=== PATIENT | male | born 1955 | race Caucasian/White ===

== ENCOUNTER 2019-11-25 08:51 | Outpatient (REF) | payer BC, SELFPAY | END 2019-11-25 08:52 | disposition home or self-care (01) | LOC: HO.BBR 08:51 | PROVIDERS: Visit Provider Internal Medicine | DX: E83.110 Hereditary hemochromatosis (principal) | CPT/HCPCS: 99195 ==

== ENCOUNTER 2020-01-27 08:43 | Outpatient (REF) | payer BC, SELFPAY | END 2020-01-27 08:44 | disposition home or self-care (01) | LOC: HO.BBR 08:43 | PROVIDERS: Visit Provider Internal Medicine | DX: Z13.89 Encounter for screening for other disorder (principal) ==

== ENCOUNTER 2020-01-27 09:05 | Outpatient (REF) | payer SELFPAY ==
[2020-01-27 10:29] LABS: Cholesterol 190 mg/dL
== END 2020-01-27 09:06 | disposition home or self-care (01) ==
LOC: HO.LNC 09:05
PROVIDERS: Visit Provider Pathology Anatomic Pathology & Clinical Pathology
DX: Z76.89 Persons encountering health services in other specified circumstances (principal)
CPT/HCPCS: 82465

== ENCOUNTER 2020-02-24 08:44 | Outpatient (REF) | payer BC, SELFPAY | END 2020-02-24 08:45 | disposition home or self-care (01) | LOC: HO.BBR 08:44 | PROVIDERS: Visit Provider Internal Medicine | DX: Z13.89 Encounter for screening for other disorder (principal) ==

== ENCOUNTER 2020-02-24 09:37 | Outpatient (REF) | payer SELFPAY ==
[2020-02-24 10:35] LABS: SARS COV2 IgG Negative (Negative)
== END 2020-02-24 09:38 | disposition home or self-care (01) ==
LOC: HO.LNC 09:37
PROVIDERS: Visit Provider Pathology Anatomic Pathology & Clinical Pathology
DX: Z13.89 Encounter for screening for other disorder (principal)
CPT/HCPCS: 36415; 86769

== ENCOUNTER 2020-03-25 10:07 | Outpatient (REF) | payer SELFPAY | END 2020-03-25 10:08 | disposition home or self-care (01) | LOC: HO.BBR 10:07 | PROVIDERS: Visit Provider Internal Medicine | DX: Z13.89 Encounter for screening for other disorder (principal) ==

== ENCOUNTER 2020-04-24 10:46 | Outpatient (REF) | payer BC, SELFPAY | END 2020-04-24 10:47 | disposition home or self-care (01) | LOC: HO.BBR 10:46 | PROVIDERS: Visit Provider Internal Medicine | DX: Z13.89 Encounter for screening for other disorder (principal) ==

== ENCOUNTER 2020-05-22 10:41 | Outpatient (REF) | payer BC, SELFPAY | END 2020-05-22 10:42 | disposition home or self-care (01) | LOC: HO.BBR 10:41 | PROVIDERS: PCP Internal Medicine; Visit Provider Internal Medicine | DX: Z13.89 Encounter for screening for other disorder (principal) ==

== ENCOUNTER 2020-06-19 08:50 | Outpatient (REF) | payer BC, SELFPAY | END 2020-06-19 08:51 | disposition home or self-care (01) | LOC: HO.BBR 08:50 | PROVIDERS: Visit Provider Internal Medicine | DX: Z13.89 Encounter for screening for other disorder (principal) ==

== ENCOUNTER 2020-12-25 08:57 | Outpatient (REF) | payer BC, SELFPAY | END 2020-12-25 08:58 | disposition home or self-care (01) | LOC: HO.BBR 08:57 | PROVIDERS: Visit Provider Internal Medicine | DX: Z13.89 Encounter for screening for other disorder (principal) ==

== ENCOUNTER → 2021-02-25 14:45 | Outpatient (BNV) | payer BC, MEDICARE, SELFPAY | PROVIDERS: PCP Internal Medicine; Referring Provider Physician Assistant Medical; Visit Provider Internal Medicine Medical Oncology | DX: E83.119 Hemochromatosis, unspecified (principal) | CPT/HCPCS: 99203; 99213 ==

== ENCOUNTER 2021-03-09 14:49 | Outpatient (REF) | payer BC, SELFPAY | END 2021-03-09 14:50 | disposition home or self-care (01) | LOC: HO.BBR 14:49 | PROVIDERS: Visit Provider Internal Medicine Medical Oncology | DX: Z13.89 Encounter for screening for other disorder (principal) ==

== ENCOUNTER 2021-04-06 10:03 | Outpatient (REF) | payer BC, SELFPAY ==
[2021-04-06 10:26] LABS: MANUAL DIFF FLAG NO
[2021-04-06 10:29] LABS: Basophils Absolute Auto 0.1 X10*3/uL (0.0-0.2); Basophils Percent Auto 0.9 % (0-2); Eosinophils Absolute Auto 0.1 X10*3/uL (0.0-0.4); Eosinophils Percent Auto 1.2 % (0-4); Hematocrit 44.1 % (42.0-52.0); Hemoglobin 15.6 g/dl (14.0-18.0); Imm Gran Abs Auto 0.02 X10*3/uL (0.00-0.03); Imm Gran Pct Auto 0.4 % (0.0-0.4); Lymphocytes Absolute Auto 1.6 X10*3/uL (1.2-4.9); Lymphocytes Percent Auto 27.9 % (20-40); Mean Corpuscular HGB Conc 35.4 g/dl (31.0-36.0); Mean Corpuscular Hemoglobin 32.5 pg (27.0-33.0); Mean Corpuscular Volume 91.9 fL (80.0-98.0); Mean Platelet Volume 9.9 fL (9.4-12.4); Monocytes Absolute Auto 0.9 X10*3/uL (0.1-1.2); Monocytes Percent Auto 15.6 % (2-11); Neutrophils Absolute Auto 3.1 x10*3/uL (2.0-8.3); Platelet Count 219 X10*3/uL (160-400); Red Cell Distribution Width 12.3 % (11.0-16.0); White Blood Count 5.7 X10*3/uL (4.8-10.8)
[2021-04-06 10:44] LABS: Alanine Aminotransferase 20 U/L (0-40); Albumin Level 4.4 g/dL (3.5-5.0); Alkaline Phosphatase 73 U/L (39-117); Anion Gap 11 (12-20); Aspartate Amino Transferase 20 U/L (5-37); Bilirubin Total 1.1 mg/dL (0.0-1.0); Blood Urea Nitrogen 11 mg/dL (9-16); Calcium 9.4 mg/dL (8.4-10.2); Carbon Dioxide 25 mmol/L (22-29); Chloride 107 mmol/L (96-108); Estimated Glomerular Filt Rate > 60; Glucose Random 95 mg/dL (60-115); Iron 273 mcg/dL (45-160); Percent Iron Saturation 79 % (15-50); Potassium 3.9 mmol/L (3.3-5.1); Sodium 139 mmol/L (135-145); Total Iron Binding Capacity 347 mcg/dL (228-428); Total Protein 6.9 g/dL (6.5-8.0); Unsaturated Iron Binding 74 ug/dL
[2021-04-06 11:05] LABS: Ferritin 47 ng/mL (20-250)
== END 2021-04-06 10:04 | disposition home or self-care (01) ==
LOC: HO.BBR 10:03
PROVIDERS: Visit Provider Internal Medicine Medical Oncology
DX: E83.110 Hereditary hemochromatosis (principal)
CPT/HCPCS: 36415; 80053; 82728; 83540; 85025

== ENCOUNTER 2021-05-19 08:04 | Outpatient (REF) | payer BC, SELFPAY ==
[2021-05-19 08:23] LABS: MANUAL DIFF FLAG NO
[2021-05-19 08:26] LABS: Basophils Absolute Auto 0.1 X10*3/uL (0.0-0.2); Eosinophils Absolute Auto 0.1 X10*3/uL (0.0-0.4); Eosinophils Percent Auto 2.1 % (0-4); Hematocrit 44.8 % (42.0-52.0); Hemoglobin 15.3 g/dl (14.0-18.0); Imm Gran Abs Auto 0.02 X10*3/uL (0.00-0.03); Imm Gran Pct Auto 0.4 % (0.0-0.4); Lymphocytes Absolute Auto 1.6 X10*3/uL (1.2-4.9); Lymphocytes Percent Auto 30.2 % (20-40); Mean Corpuscular HGB Conc 34.2 g/dl (31.0-36.0); Mean Corpuscular Hemoglobin 31.9 pg (27.0-33.0); Mean Corpuscular Volume 93.3 fL (80.0-98.0); Mean Platelet Volume 10.1 fL (9.4-12.4); Monocytes Absolute Auto 0.9 X10*3/uL (0.1-1.2); Monocytes Percent Auto 16.8 % (2-11); Neutrophils Absolute Auto 2.6 x10*3/uL (2.0-8.3); Neutrophils Percent Auto 49.5 % (45-73); Platelet Count 214 X10*3/uL (160-400); Red Cell Distribution Width 11.9 % (11.0-16.0); White Blood Count 5.2 X10*3/uL (4.8-10.8)
[2021-05-19 09:21] LABS: Alanine Aminotransferase 22 U/L (0-40); Albumin Level 4.2 g/dL (3.5-5.0); Alkaline Phosphatase 73 U/L (39-117); Anion Gap 11 (12-20); Aspartate Amino Transferase 20 U/L (5-37); Bilirubin Total 0.9 mg/dL (0.0-1.0); Blood Urea Nitrogen 15 mg/dL (9-16); Calcium 9.2 mg/dL (8.4-10.2); Carbon Dioxide 26 mmol/L (22-29); Chloride 106 mmol/L (96-108); Estimated Glomerular Filt Rate > 60; Glucose Random 88 mg/dL (60-115); Iron 227 mcg/dL (45-160); Percent Iron Saturation 62 % (15-50); Potassium 4.3 mmol/L (3.3-5.1); Sodium 139 mmol/L (135-145); Total Iron Binding Capacity 369 mcg/dL (228-428); Total Protein 6.6 g/dL (6.5-8.0); Unsaturated Iron Binding 142 ug/dL
[2021-05-19 09:45] LABS: Ferritin 28 ng/mL (20-250)
== END 2021-05-19 08:05 | disposition home or self-care (01) ==
LOC: HO.BBR 08:04
PROVIDERS: Visit Provider Internal Medicine Medical Oncology
DX: E83.110 Hereditary hemochromatosis (principal)
CPT/HCPCS: 36415; 80053; 82728; 83540; 85025

== ENCOUNTER 2021-06-17 08:02 | Outpatient (REF) | payer BC, SELFPAY ==
[2021-06-17 08:46] LABS: MANUAL DIFF FLAG NO
[2021-06-17 08:49] LABS: Basophils Absolute Auto 0.1 X10*3/uL (0.0-0.2); Basophils Percent Auto 1.1 % (0-2); Eosinophils Absolute Auto 0.1 X10*3/uL (0.0-0.4); Eosinophils Percent Auto 2.4 % (0-4); Hematocrit 43.5 % (42.0-52.0); Hemoglobin 14.6 g/dl (14.0-18.0); Imm Gran Abs Auto 0.02 X10*3/uL (0.00-0.03); Imm Gran Pct Auto 0.4 % (0.0-0.4); Lymphocytes Absolute Auto 1.8 X10*3/uL (1.2-4.9); Lymphocytes Percent Auto 31.9 % (20-40); Mean Corpuscular HGB Conc 33.6 g/dl (31.0-36.0); Mean Corpuscular Hemoglobin 30.8 pg (27.0-33.0); Mean Corpuscular Volume 91.8 fL (80.0-98.0); Monocytes Absolute Auto 0.9 X10*3/uL (0.1-1.2); Monocytes Percent Auto 16.8 % (2-11); Neutrophils Absolute Auto 2.6 x10*3/uL (2.0-8.3); Neutrophils Percent Auto 47.4 % (45-73); Platelet Count 194 X10*3/uL (160-400); Red Blood Count 4.74 X10*6/uL (4.60-5.80); Red Cell Distribution Width 11.6 % (11.0-16.0); White Blood Count 5.5 X10*3/uL (4.8-10.8)
[2021-06-17 09:15] LABS: Alanine Aminotransferase 23 U/L (0-40); Albumin Level 4.1 g/dL (3.5-5.0); Alkaline Phosphatase 75 U/L (39-117); Anion Gap 11 (12-20); Aspartate Amino Transferase 18 U/L (5-37); Bilirubin Total 0.6 mg/dL (0.0-1.0); Blood Urea Nitrogen 13 mg/dL (9-16); Calcium 9.1 mg/dL (8.4-10.2); Carbon Dioxide 27 mmol/L (22-29); Chloride 106 mmol/L (96-108); Estimated Glomerular Filt Rate > 60; Glucose Random 104 mg/dL (60-115); Iron 117 mcg/dL (45-160); Percent Iron Saturation 31 % (15-50); Potassium 4.1 mmol/L (3.3-5.1); Sodium 140 mmol/L (135-145); Total Iron Binding Capacity 381 mcg/dL (228-428); Total Protein 6.4 g/dL (6.5-8.0); Unsaturated Iron Binding 264 ug/dL
[2021-06-17 11:11] LABS: Ferritin 14 ng/mL (20-250)
== END 2021-06-17 08:03 | disposition home or self-care (01) ==
LOC: HO.BBR 08:02
PROVIDERS: Visit Provider Internal Medicine Medical Oncology
DX: E83.110 Hereditary hemochromatosis (principal)
CPT/HCPCS: 36415; 80053; 82728; 83540; 85025

== ENCOUNTER 2021-07-20 08:02 | Outpatient (REF) | payer BC, SELFPAY | END 2021-07-20 08:03 | disposition home or self-care (01) | LOC: HO.BBR 08:02 | PROVIDERS: Visit Provider Internal Medicine Medical Oncology | DX: Z13.89 Encounter for screening for other disorder (principal) ==

== ENCOUNTER 2021-08-19 08:05 | Outpatient (REF) | payer BC, SELFPAY | END 2021-08-19 08:06 | disposition home or self-care (01) | LOC: HO.BBR 08:05 | PROVIDERS: Visit Provider Internal Medicine Medical Oncology | DX: Z13.89 Encounter for screening for other disorder (principal) ==

== ENCOUNTER 2021-09-22 08:58 | Outpatient (REF) | payer BC, SELFPAY | END 2021-09-22 08:59 | disposition home or self-care (01) | LOC: HO.BBR 08:58 | PROVIDERS: Visit Provider Internal Medicine Medical Oncology | DX: Z13.89 Encounter for screening for other disorder (principal) ==

== ENCOUNTER 2021-12-08 08:46 | Outpatient (REF) | payer MEDICARE, SELFPAY ==
[2021-12-08 09:13] LABS: MANUAL DIFF FLAG NO
[2021-12-08 09:16] LABS: Basophils Absolute Auto 0.1 X10*3/uL (0.0-0.2); Basophils Percent Auto 0.8 % (0-2); Eosinophils Absolute Auto 0.1 X10*3/uL (0.0-0.4); Eosinophils Percent Auto 2.3 % (0-4); Hematocrit 45.3 % (42.0-52.0); Hemoglobin 14.5 g/dl (14.0-18.0); Imm Gran Abs Auto 0.02 X10*3/uL (0.00-0.03); Imm Gran Pct Auto 0.3 % (0.0-0.4); Lymphocytes Absolute Auto 1.9 X10*3/uL (1.2-4.9); Mean Corpuscular Hemoglobin 26.3 pg (27.0-33.0); Mean Corpuscular Volume 82.1 fL (80.0-98.0); Mean Platelet Volume 9.5 fL (9.4-12.4); Monocytes Percent Auto 15.3 % (2-11); Neutrophils Absolute Auto 3.1 x10*3/uL (2.0-8.3); Neutrophils Percent Auto 50.3 % (45-73); Platelet Count 212 X10*3/uL (160-400); Red Blood Count 5.52 X10*6/uL (4.60-5.80); White Blood Count 6.2 X10*3/uL (4.8-10.8)
[2021-12-08 09:36] LABS: Iron 115 mcg/dL (45-160); Percent Iron Saturation 29 % (15-50); Total Iron Binding Capacity 402 mcg/dL (228-428); Unsaturated Iron Binding 287 ug/dL
[2021-12-08 09:57] LABS: Ferritin 8 ng/mL (20-250)
== END 2021-12-08 08:47 | disposition home or self-care (01) ==
LOC: HO.BBR 08:46
PROVIDERS: Visit Provider Internal Medicine Medical Oncology
DX: E83.110 Hereditary hemochromatosis (principal)
CPT/HCPCS: 36415; 82728; 83540; 85025

== ENCOUNTER 2022-02-08 08:44 | Outpatient (REF) | payer MEDICARE, SELFPAY ==
[2022-02-08 09:19] LABS: MANUAL DIFF FLAG NO
[2022-02-08 09:23] LABS: Basophils Absolute Auto 0.1 X10*3/uL (0.0-0.2); Basophils Percent Auto 0.9 % (0-2); Eosinophils Absolute Auto 0.2 X10*3/uL (0.0-0.4); Eosinophils Percent Auto 2.8 % (0-4); Hematocrit 41.5 % (42.0-52.0); Hemoglobin 13.5 g/dl (14.0-18.0); Imm Gran Abs Auto 0.07 X10*3/uL (0.00-0.03); Imm Gran Pct Auto 1.1 % (0.0-0.4); Lymphocytes Absolute Auto 2.1 X10*3/uL (1.2-4.9); Lymphocytes Percent Auto 32.2 % (20-40); Mean Corpuscular HGB Conc 32.5 g/dl (31.0-36.0); Mean Corpuscular Hemoglobin 26.7 pg (27.0-33.0); Mean Platelet Volume 9.4 fL (9.4-12.4); Monocytes Absolute Auto 0.9 X10*3/uL (0.1-1.2); Monocytes Percent Auto 13.8 % (2-11); Neutrophils Absolute Auto 3.2 x10*3/uL (2.0-8.3); Neutrophils Percent Auto 49.2 % (45-73); Platelet Count 240 X10*3/uL (160-400); Red Blood Count 5.06 X10*6/uL (4.60-5.80); Red Cell Distribution Width 14.9 % (11.0-16.0); White Blood Count 6.5 X10*3/uL (4.8-10.8)
[2022-02-08 11:37] LABS: Iron 93 mcg/dL (45-160); Percent Iron Saturation 29 % (15-50); Total Iron Binding Capacity 318 mcg/dL (228-428); Unsaturated Iron Binding 225 ug/dL
[2022-02-08 11:54] LABS: Ferritin 28 ng/mL (20-250)
== END 2022-02-08 08:45 | disposition home or self-care (01) ==
LOC: HO.BBR 08:44
PROVIDERS: Visit Provider Internal Medicine Medical Oncology
DX: E83.110 Hereditary hemochromatosis (principal)
CPT/HCPCS: 36415; 82728; 83540; 85025

== ENCOUNTER 2022-03-16 07:56 | Outpatient (REF) | payer MEDICARE, SELFPAY | END 2022-03-16 07:57 | disposition home or self-care (01) | LOC: HO.BBR 07:56 | PROVIDERS: Visit Provider Internal Medicine Medical Oncology | DX: Z13.89 Encounter for screening for other disorder (principal) ==

== ENCOUNTER 2022-06-14 07:58 | Outpatient (REF) | payer MEDICARE, SELFPAY | END 2022-06-14 07:59 | disposition home or self-care (01) | LOC: HO.BBR 07:58 | PROVIDERS: Visit Provider Internal Medicine Medical Oncology | DX: Z13.89 Encounter for screening for other disorder (principal) ==

== ENCOUNTER 2022-08-29 09:05 | Outpatient (REF) | payer MEDICARE, SELFPAY ==
--- NOTE | ~2022-08-29 | XR_ITS ---
EXAMINATION: XR FOOT, LEFT CLINICAL INFORMATION: Question stress fracture COMPARISON: None available. TECHNIQUE: AP, lateral, and oblique views of the left foot. FINDINGS: No acute fracture or dislocation appreciated however if clinical concern for stress fracture persists MR would be more sensitive for evaluation. There is soft tissue swelling along the medial aspect of the first metatarsophalangeal joint. Joint spaces are maintained. Os trigonum. Small tibiotalar joint effusion. XR/XR foot LT min 3V IMPRESSION: 1. No acute fracture or dislocation appreciated however if clinical concern for stress fracture persists MR would be more sensitive for evaluation. 2. There is soft tissue swelling along the medial aspect of the first metatarsophalangeal joint. 3. Small tibiotalar joint effusion.
== END 2022-08-29 09:06 | disposition home or self-care (01) ==
LOC: HO.XRAY 09:05
PROVIDERS: PCP Internal Medicine; Visit Provider Internal Medicine Medical Oncology
DX: M79.672 Pain in left foot (principal); E83.119 Hemochromatosis, unspecified
CPT/HCPCS: 73630

== ENCOUNTER 2022-09-20 08:00 | Outpatient (REF) | payer MEDICARE, SELFPAY | END 2022-09-20 08:01 | disposition home or self-care (01) | LOC: HO.BBR 08:00 | PROVIDERS: PCP Internal Medicine; Visit Provider Internal Medicine Medical Oncology | DX: Z13.89 Encounter for screening for other disorder (principal) ==

== ENCOUNTER 2023-01-23 08:53 | Outpatient (REF) | payer MEDICARE, SELFPAY | END 2023-01-23 08:54 | disposition home or self-care (01) | LOC: HO.BBR 08:53 | PROVIDERS: PCP Internal Medicine; Visit Provider Internal Medicine Medical Oncology | DX: Z13.89 Encounter for screening for other disorder (principal) ==

== ENCOUNTER 2023-03-22 10:51 | Outpatient (REF) | payer MEDICARE, SELFPAY ==
[2023-03-22 11:14] LABS: MANUAL DIFF FLAG NO
[2023-03-22 11:18] LABS: Basophils Percent Auto 0.5 % (0-2); Eosinophils Absolute Auto 0.1 X10*3/uL (0.0-0.4); Eosinophils Percent Auto 1.8 % (0-4); Hematocrit 46.3 % (42.0-52.0); Imm Gran Abs Auto 0.01 X10*3/uL (0.00-0.03); Imm Gran Pct Auto 0.2 % (0.0-0.4); Lymphocytes Absolute Auto 1.6 X10*3/uL (1.2-4.9); Lymphocytes Percent Auto 28.5 % (20-40); Mean Corpuscular HGB Conc 34.6 g/dl (31.0-36.0); Mean Corpuscular Hemoglobin 30.9 pg (27.0-33.0); Mean Corpuscular Volume 89.6 fL (80.0-98.0); Mean Platelet Volume 9.9 fL (9.4-12.4); Monocytes Absolute Auto 0.9 X10*3/uL (0.1-1.2); Monocytes Percent Auto 15.6 % (2-11); Neutrophils Percent Auto 53.4 % (45-73); Platelet Count 192 X10*3/uL (160-400); Red Blood Count 5.17 X10*6/uL (4.60-5.80); Red Cell Distribution Width 12.8 % (11.0-16.0); White Blood Count 5.6 X10*3/uL (4.8-10.8)
[2023-03-22 12:44] LABS: Alanine Aminotransferase 21 U/L (0-40); Albumin Level 4.2 g/dL (3.5-5.0); Alkaline Phosphatase 77 U/L (39-117); Anion Gap 10 (12-20); Aspartate Amino Transferase 19 U/L (5-37); Bilirubin Total 0.8 mg/dL (0.0-1.0); Blood Urea Nitrogen 15 mg/dL (9-16); Calcium 9.7 mg/dL (8.4-10.2); Carbon Dioxide 30 mmol/L (22-29); Chloride 105 mmol/L (96-108); Estimated Glomerular Filt Rate > 60; Ferritin 32 ng/mL (20-250); Glucose Random 95 mg/dL (60-115); Iron 232 mcg/dL (45-160); Percent Iron Saturation 68 % (15-50); Potassium 4.1 mmol/L (3.3-5.1); Sodium 141 mmol/L (135-145); Total Iron Binding Capacity 343 mcg/dL (228-428); Unsaturated Iron Binding 111 ug/dL
== END 2023-03-22 10:52 | disposition home or self-care (01) ==
LOC: HO.BBR 10:51
PROVIDERS: PCP Internal Medicine; Visit Provider Internal Medicine Medical Oncology
DX: E83.110 Hereditary hemochromatosis (principal)
CPT/HCPCS: 36415; 80053; 82728; 83540; 85025

== ENCOUNTER 2023-06-09 08:37 | Outpatient (REF) | payer MEDICARE, SELFPAY ==
[2023-06-09 09:00] LABS: MANUAL DIFF FLAG NO
[2023-06-09 09:06] LABS: Basophils Percent Auto 0.8 % (0-2); Eosinophils Absolute Auto 0.1 X10*3/uL (0.0-0.4); Eosinophils Percent Auto 2.6 % (0-4); Hematocrit 46.7 % (42.0-52.0); Hemoglobin 16.3 g/dl (14.0-18.0); Imm Gran Abs Auto 0.02 X10*3/uL (0.00-0.03); Imm Gran Pct Auto 0.4 % (0.0-0.4); Lymphocytes Absolute Auto 1.6 X10*3/uL (1.2-4.9); Mean Corpuscular HGB Conc 34.9 g/dl (31.0-36.0); Mean Corpuscular Volume 88.8 fL (80.0-98.0); Mean Platelet Volume 9.8 fL (9.4-12.4); Neutrophils Absolute Auto 2.3 x10*3/uL (2.0-8.3); Neutrophils Percent Auto 45.2 % (45-73); Platelet Count 196 X10*3/uL (160-400); Red Blood Count 5.26 X10*6/uL (4.60-5.80); Red Cell Distribution Width 12.5 % (11.0-16.0); White Blood Count 5.1 X10*3/uL (4.8-10.8)
[2023-06-09 10:05] LABS: Alanine Aminotransferase 28 U/L (0-40); Albumin Level 4.4 g/dL (3.5-5.0); Alkaline Phosphatase 76 U/L (39-117); Anion Gap 15 (12-20); Aspartate Amino Transferase 25 U/L (5-37); Bilirubin Total 0.8 mg/dL (0.0-1.0); Blood Urea Nitrogen 13 mg/dL (9-16); Carbon Dioxide 21 mmol/L (22-29); Chloride 107 mmol/L (96-108); Estimated Glomerular Filt Rate > 60; Ferritin 27 ng/mL (20-250); Glucose Random 105 mg/dL (60-115); Iron 154 mcg/dL (45-160); Percent Iron Saturation 44 % (15-50); Potassium 3.7 mmol/L (3.3-5.1); Sodium 139 mmol/L (135-145); Total Iron Binding Capacity 349 mcg/dL (228-428); Total Protein 7.2 g/dL (6.5-8.0); Unsaturated Iron Binding 195 ug/dL
== END 2023-06-09 08:38 | disposition home or self-care (01) ==
LOC: HO.BBR 08:37
PROVIDERS: PCP Internal Medicine; Visit Provider Internal Medicine Medical Oncology
DX: E83.110 Hereditary hemochromatosis (principal)
CPT/HCPCS: 36415; 80053; 82728; 83540; 85025

== ENCOUNTER 2023-09-20 11:19 | Outpatient (REF) | payer MEDICARE, SELFPAY ==
[2023-09-20 11:53] LABS: MANUAL DIFF FLAG NO
[2023-09-20 11:58] LABS: Basophils Absolute Auto 0.1 X10*3/uL (0.0-0.2); Basophils Percent Auto 1.1 % (0-2); Eosinophils Absolute Auto 0.1 X10*3/uL (0.0-0.4); Eosinophils Percent Auto 1.8 % (0-4); Hematocrit 46.7 % (42.0-52.0); Hemoglobin 15.7 g/dl (14.0-18.0); Imm Gran Abs Auto 0.02 X10*3/uL (0.00-0.03); Imm Gran Pct Auto 0.4 % (0.0-0.4); Lymphocytes Absolute Auto 1.5 X10*3/uL (1.2-4.9); Mean Corpuscular HGB Conc 33.6 g/dl (31.0-36.0); Mean Corpuscular Hemoglobin 30.7 pg (27.0-33.0); Mean Corpuscular Volume 91.2 fL (80.0-98.0); Mean Platelet Volume 10.1 fL (9.4-12.4); Monocytes Absolute Auto 0.7 X10*3/uL (0.1-1.2); Monocytes Percent Auto 15.6 % (2-11); Neutrophils Absolute Auto 2.2 x10*3/uL (2.0-8.3); Neutrophils Percent Auto 48.1 % (45-73); Platelet Count 179 X10*3/uL (160-400); Red Blood Count 5.12 X10*6/uL (4.60-5.80); Red Cell Distribution Width 13.5 % (11.0-16.0); White Blood Count 4.5 X10*3/uL (4.8-10.8)
[2023-09-20 13:07] LABS: Alanine Aminotransferase 28 U/L (0-40); Albumin Level 4.2 g/dL (3.5-5.0); Alkaline Phosphatase 84 U/L (39-117); Anion Gap 13 (12-20); Aspartate Amino Transferase 23 U/L (5-37); Bilirubin Total 0.6 mg/dL (0.0-1.0); Blood Urea Nitrogen 11 mg/dL (9-16); Calcium 9.6 mg/dL (8.4-10.2); Carbon Dioxide 28 mmol/L (22-29); Chloride 105 mmol/L (96-108); Estimated Glomerular Filt Rate > 60; Glucose Random 170 mg/dL (60-115); Iron 89 mcg/dL (45-160); Percent Iron Saturation 27 % (15-50); Potassium 4.4 mmol/L (3.3-5.1); Sodium 142 mmol/L (135-145); Total Iron Binding Capacity 325 mcg/dL (228-428); Total Protein 6.9 g/dL (6.5-8.0); Unsaturated Iron Binding 236 ug/dL
[2023-09-20 13:20] LABS: Ferritin 19 ng/mL (20-250)
== END 2023-09-20 11:20 | disposition home or self-care (01) ==
LOC: HO.BBR 11:19
PROVIDERS: PCP Internal Medicine; Visit Provider Internal Medicine Medical Oncology
DX: E83.110 Hereditary hemochromatosis (principal)
CPT/HCPCS: 36415; 80053; 82728; 83540; 85025

== ENCOUNTER 2023-12-22 08:59 | Outpatient (REF) | payer MEDICARE, SELFPAY ==
[2023-12-22 09:27] LABS: MANUAL DIFF FLAG NO
[2023-12-22 09:30] LABS: Basophils Absolute Auto 0.1 X10*3/uL (0.0-0.2); Basophils Percent Auto 0.8 % (0-2); Eosinophils Absolute Auto 0.2 X10*3/uL (0.0-0.4); Hemoglobin 15.9 g/dl (14.0-18.0); Imm Gran Abs Auto 0.05 X10*3/uL (0.00-0.03); Imm Gran Pct Auto 0.8 % (0.0-0.4); Lymphocytes Absolute Auto 1.7 X10*3/uL (1.2-4.9); Lymphocytes Percent Auto 27.9 % (20-40); Mean Corpuscular HGB Conc 34.6 g/dl (31.0-36.0); Mean Corpuscular Hemoglobin 31.1 pg (27.0-33.0); Mean Platelet Volume 9.8 fL (9.4-12.4); Monocytes Percent Auto 16.6 % (2-11); Neutrophils Absolute Auto 3.1 x10*3/uL (2.0-8.3); Neutrophils Percent Auto 50.9 % (45-73); Platelet Count 200 X10*3/uL (160-400); Red Blood Count 5.11 X10*6/uL (4.60-5.80)
[2023-12-22 09:57] LABS: Alanine Aminotransferase 42 U/L (0-40); Albumin Level 4.4 g/dL (3.5-5.0); Alkaline Phosphatase 89 U/L (39-117); Anion Gap 10 (12-20); Aspartate Amino Transferase 32 U/L (5-37); Bilirubin Total 0.6 mg/dL (0.0-1.0); Blood Urea Nitrogen 17 mg/dL (9-16); Calcium 9.6 mg/dL (8.4-10.2); Carbon Dioxide 29 mmol/L (22-29); Chloride 104 mmol/L (96-108); Estimated Glomerular Filt Rate > 60; Glucose Random 98 mg/dL (60-115); Iron 199 mcg/dL (45-160); Percent Iron Saturation 62 % (15-50); Potassium 4.9 mmol/L (3.3-5.1); Sodium 138 mmol/L (135-145); Total Iron Binding Capacity 323 mcg/dL (228-428); Unsaturated Iron Binding 124 ug/dL
[2023-12-22 10:12] LABS: Ferritin 46 ng/mL (20-250)
== END 2023-12-22 09:00 | disposition home or self-care (01) ==
LOC: HO.BBR 08:59
PROVIDERS: PCP Internal Medicine; Visit Provider Internal Medicine Medical Oncology
DX: E83.110 Hereditary hemochromatosis (principal)
CPT/HCPCS: 36415; 80053; 82728; 83540; 85025

== ENCOUNTER 2024-03-12 08:59 | Outpatient (REF) | payer MEDICARE, SELFPAY ==
[2024-03-12 09:13] LABS: Hemoglobin 15.9 g/dl (14.0-18.0)
--- OUTSIDE RECORDS SUMMARY | 2024-03-12 09:22 | XMS_ITS | Clinical Summary ---
Author Organization [address] Address [address] [place] [phone] Phone Care Team Providers Care Pulp Cooker Name Role Phone Unavailable Primary Care Provider Unavailabl e Social History Tobacco Use Types Packs/Day Years Used Date Smoking Tobacco: Never Assessed Sex and Gender Information Value Date Recorded Sex Assigned at Not on file Legal Sex Male 8:51 AM EDT Gender Identity Not on file Sexual Orientation Not on file Plan of Treatment Health Maintenance Due Date Last Done Comments HIV screening 1969 Hepatitis C screening 1974 Tetanus adult (Td q 10,TDAP once) 1976 Lipid disorder screening 1996 Colon cancer screening, Colonoscopy 2001 Diabetes screening 2001 Shingles vaccine (Shingrix) (1 of 2 - Shingrix (RZV) 2 Dose Standard Series) 2006 Pneumo Vaccine 65+ (1 of 1 - PCV) 2021 Influenza vaccine 09/07/2023 Covid-19 vaccine series ( - season) 2023 RSV Discussion (1 - 1-dose 7 5+ series) 12/12/2031 Meningococcal Vaccine Aged Out No gabriel juli eligible based on patient's age to complete this topic
--- OUTSIDE RECORDS SUMMARY | 2024-03-12 09:22 | XMS_ITS | Clinical Summary ---
Author Organization [facility] Address [address] [place] [address] Care Team Providers Care Butcher'S Assistant Name Role Phone Ervin Herzog MD Primary Care Provider [phone] Allergies Active Allergy Reactions Criticality Noted Date Comments Oysters 04/08/2019 Medications Medication Sig Dispensed Refills Start Date End Date Status Multiple Vitamins-Minerals (PRESERVISION AREDS PO) Take by mouth daily. 0 Active Psyllium (METAMUCIL FIBER PO) Take by mouth daily. 0 Active irbesartan (AVAPRO) 75 MG tablet Take 75 mg by mouth daily. 0 Active Active Problems Problem Noted Date Diagnosed Date Hereditary hemochromatosis 04/16/2019 Social History Tobacco Use Types Packs/Day Years Used Date Smoking Tobacco: Never Smokeless Tobacco: Never Alcohol Use Standard Drinks/Week Comments Yes 0 (1 standard drink = 0.6 oz pur e alcohol) Sex and Gender Information Value Date Recorded Sex Assigned at Not on file Gender Identity Not on file Sexual Orientation Not on file Last Filed Vital Signs Vital Sign Reading Time Taken Comments Blood Pressure 130/79 04/08/2019 2:31 PM EST Pulse 83 04/08/2019 2:31 PM EST Temperature 36.6 ??C (97.8 ??F) 04/08/2019 2:31 PM ES T Respiratory Rate - - Oxygen Saturation - - Inhaled Oxygen Concentration - - Weight 83.9 kg (185 lb) 04/08/2019 2:31 PM EST Height 180.3 cm (5' 11 ) 04/08/2019 2:31 PM EST Body Mass Index 25.8 04/08/2019 2:31 PM EST Plan of Treatment Health Maintenance Due Date Last Done Comments Hepatitis C Screening 1956 COVID-19 Vaccine (#1) 06/10/1957 Depression Screening 1968 Preventative Health Evaluation 1974 DTap / Tdap / Td (1 - Tdap) 12/12/1975 Colon Cancer Screening (Colonoscopy) 2001 Shingrix-Zoster Vaccine (1 of 2) 2006 Fall Risk Assessment 2021 Pneumococcal Vaccine (1 of 1 - PCV) 2021 Influenza Vaccine (#1) 2023 RSV Adult > 60+ Yrs or Pregn ant (1 - 1-dose 75+ series) 12/12/2031 Hepatitis B Vaccines Aged Out No long er eligible based on patient's age to complete this topic RSV Ped < 20 months Aged Out No longe r eligible based on patient's age to complete this topic Care Teams Butcher'S Assistant Relationship Specialty Start Date End Date Ervin Herzog MD [address] [place] [id number] PCP - General Internal Medicine 03/26/19
[2024-03-12 10:00] LABS: Iron 235 mcg/dL (45-160); Percent Iron Saturation 74 % (15-50); Total Iron Binding Capacity 318 mcg/dL (228-428); Unsaturated Iron Binding 83 ug/dL
[2024-03-12 10:08] LABS: Ferritin 75 ng/mL (20-250)
== END 2024-03-12 09:00 | disposition home or self-care (01) ==
LOC: HO.BBR 08:59
PROVIDERS: PCP Internal Medicine; Visit Provider Internal Medicine Medical Oncology
DX: E83.110 Hereditary hemochromatosis (principal)
CPT/HCPCS: 36415; 82728; 83540; 85018

== ENCOUNTER 2024-06-26 08:45 | Outpatient (REF) | payer MEDICARE, SELFPAY ==
--- OUTSIDE RECORDS SUMMARY | 2024-06-26 10:01 | XMS_ITS | Clinical Summary ---
Author Organization [address] Address [address] [place] [phone] Phone Care Team Providers Care Inventory Worker Name Role Phone Unavailable Primary Care Provider [...] cancer screening, Colonoscopy 2001 Diabetes screening 2001 Pneumococcal Vaccine (50+ ye ars) (1 of 1 - PCV) 2006 Shingles vaccine (Shingrix) (1 of 2 - Shingrix (RZV) 2 Dose Standard Series) 2006 Covid-19 vaccine series (1 - 2023- season) 2023 Influenza vaccine 10/07/2024 RSV Immunization (1 - 1-dose 75+ series) 12/12/2031 Meningococcal Vaccine Aged Out No gabriel juli eligible based on patient's age to complete this topic
--- OUTSIDE RECORDS SUMMARY | 2024-06-26 10:01 | XMS_ITS | Data Portability ---
Author Organization [place] [facility] [place], [facility]IENT Address [address] [facility] [place] [address] Assessment Encounter Date Assessment Date Assessment LastModified by Organization Details LastModified Time 08/01/2019 08/01/2019 DATA: Radiographs are reviewed and interpreted of the right thumb from 08/01/2019 four views. I could not state there is dramatic arthritis including the sesamoids. PLAN: The findings were reviewed with the patient, including the examination results, diagnosis and planned treatment(s). The treatment options were discussed. All questions were answered. Patient will call if there are any problems or questions. The symptoms, signs, natural history and treatment alternatives of each of the diagnoses were discussed. We discussed the options. His symptoms are consistent with a trigger thumb at this time. He has some mild loss of flexion but active and passive motion are the same. He has some mild tenderness over the sesamoid, but that is not his major problem. He understands this could be somewhat of a variant of a trigger digit, but without any more symptoms, I would not suggest any treatment. Educational material was given on trigger digits, as well as the injection. He understands the trigger digit may come back. I would be happy to reevaluate him. The patient completed the COVID-19 screening handout and was deemed healthy to move forward with this appointment. This visit is a bxgn-jo-hyhb visit during the COVID-19 pandemic. Based on my clinical judgment, I felt that this visit could not be provided safely and appropriately via TeleHealth. Based on available information prior to presentation, the patient had a high risk of significant worsening and potential functional impairment affecting ADLs if the visit was not completed today. The patient was seen in the office after following PPE use, Workforce Safety, Patient Safety and Infection Control protocols for all services provided today in accordance with [facility] and CDC Guidelines. [email or web address] Not available 08/06/2019 09:41:38 Plan of Treatment Reminders Order Date Submit Date Provider Last Modified By Organization Details Last Modified Time Details Appointments None record ed. Lab None record ed. Referral None record ed. Procedures None record ed. Surgeries None record ed. Imaging None record ed. Medication Orders None record ed. Patient TargetsNo targets recorded. Patient InstructionsNo instructions recorded. Reason for Referral None Reported. Procedures Surgical History Date Name Laterality Status Provider Name and Address Organization Details Recorded Time 05/21/1973 Other completed [facility] [place] 08/01/2019 14:45:08 Imaging Results None recorded. Procedure Notes None recorded. Medical Equipment None Reported. Allergies No known drug allergies Medications Name Sig Start Date Stop Date Status Note LastModified by Organization Details LastModified Time irbesartan 75 mg tablet active Not Available Not Available No t Available doxycycline hyclate 100 mg tablet active Not Available Not Available No t Available amoxicillin 500 mg-potassium clavulanate 125 mg tablet active Not Available Not Availabl e Not Available neomycin 3.5 mg/g-polymyxi n B 10,000 unit/g-dexame th 0.1 % eye oint APPLY INTO BOTH EYES AT BEDTIME active Not Available Not Available No t Available Vitals Date Recorded Body height Body mass index (BMI) Body weight Provider Name and Address Organization Details Last Updated DateTime 08/01/2019 182.88 cm 25 kg/m2 09069 g [facility] [place] 08/01/2019 14:44:50 Social History Question Answer Notes LastModified by [email or web address] Details LastModified Time Tobacco Smoking Status Never Smoker [facility] [place] 08/01/2019 14:45:04 Auto Related Injury? No Information not available 08/01/2019 What Is Your Level Of Caffeine Consumption? Moderate Information not available 08/01/2019 What Types Of Sporting Activities Do You Participate In? Fly Fishing Information not available 08/01/2019 Work Related Injury? No Information not available 08/01/2019 Sex: Unknown Functional Status Question Answer Note LastModified by [email or web address] Details LastModified Time What is your level of alcohol consumption? Occasional Information not available 08/01/2019 Do you or have you ever used smokeless tobacco? Never used smokeless tobacco Information not available 08/01/2019 What is your occupation? Retired Information not available 08/01/2019 Do you or have you ever used e-cigarettes or vape? Never used electronic cigarettes Information not available 08/01/2019 What is your exercise level? Occasional Information not available 08/01/2019 Mental Status None recorded. Family History Relationship Description Onset Age of this Age Resolved Age Notes LastModified by Organization Details LastModified Time Father No current problems or disability [email or web address] Not available 07/31 14:45:40 Mother No current problems or disability [email or web address] Not available 07/31 14:45:40 Medical History Condition Response HIV or AIDS N High Blood Pressure N Irregular Heartbeat N MRSA N Any Other Significant Medical Issues N Weight Gain / Loss N Hearing Loss N Angina, Heart Failure or Attack N Night Sweats N Seizures / Epilepsy N Osteoarthritis / Rheumatoid arthritis / Other N Cancer N Stroke N Ulcer / Stomach Bleeding / Indigestion N Visual Loss or Glaucoma N Blood Clots / Phlebitis N Heart Problems N Depression or Anxiety N Emphysema / Chronic Bronchitis N Reaction to General/Local Anesthesia N Hepatitis / Jaundice N Kidney / Bladder Infections N Diabetes N Bleeding Disorder N Chemical Dependency / Alcoholism N Psoriasis / Skin Rash N Thyroid Disorder N Heart Disease N Asthma / Shortness of Breath / Sleep Family Dinner Service Specialist ea (please specify) N Pulmonary Embolism N Past Encounters Encounter ID Performer Location Encounter Start Date Encounter Closed Date Diagnosis/Indication Diagnosis SNOMED-CT Code Diagnosis ICD10 Code Diagnosis Note [id number] CHAMP HERNANDEZ MD [facility] [address] [place] [phone] 08/01/2019 14:23:54 08/01/2019 15:12:31 Pain in right thumb [id number] M79.644 Health Concerns Section Related Observation LastModified by Organization Detai ls LastModified Time None Recorded Concern Status LastModified by Organization Details LastModified Time None Recorded Advance Directives Directive None Recorded Payers Insurance Date Sequence Insurance Name Policy Number Policy Ruffin Covered Member ID Ruffin Member ID Guarantor Name 07/29/2019 1 RONNY: [facility] [place] [place] [id number] Dalton Urena [id number] Andrylinda Romel Notes Date Note Type Note Provider Name and Address Organization Details Recorded Time 08/01/2019 text/html HX: 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 He is seen for stiffness in the right thumb without clicking or locking. In 2017 or early 2018, he was diagnosed with a trigger thumb and had an injection, and that helped. The triggering came back in January 2019 and another injection by Dr. Sutherland. That has solved the clicking and locking. He really does not have any pain, but he has stiffness of the right thumb. There is no numbness or tingling. He did not have an injury or trauma. REVIEW OF SYSTEMS: Review of systems is performed including allergy and immune system, cardiovascular system, constitutional symptoms, eyes, ears, nose and throat, endocrine system, gastrointestinal system, genitourinary system, hematologic system, skin, musculoskeletal system, neurologic system, psychiatric, and respiratory system are noncontributory and recorded in the chart. CHAMP HERNANDEZ MD [address] [place] [address], [phone], [facility] [place] 08/07/2019 08:38:15
--- OUTSIDE RECORDS SUMMARY | 2024-06-26 10:01 | XMS_ITS | Clinical Summary ---
Author Organization [facility] Address [address] [place] [address] Care Team Providers Care Route Clerk Name Role Phone Ervin Herzog MD Primary Care Provider [phone] Allergies Active Allergy Reactions Criticality Noted Date [...] age to complete this topic Care Teams Route Clerk Relationship Specialty Start Date End Date Ervin Herzog MD [address] [place] [id number] PCP - General Internal Medicine 03/26/19
[2024-06-26 11:58] LABS: Ferritin 48 ng/mL (20-250); Iron 181 mcg/dL (45-160); Percent Iron Saturation 56 % (15-50); Total Iron Binding Capacity 324 mcg/dL (228-428); Unsaturated Iron Binding 143 ug/dL
== END 2024-06-26 08:46 | disposition home or self-care (01) ==
LOC: HO.BBR 08:45
PROVIDERS: PCP Internal Medicine; Visit Provider Internal Medicine Medical Oncology
DX: E83.110 Hereditary hemochromatosis (principal)
CPT/HCPCS: 36415; 82728; 83540

== ENCOUNTER 2024-08-26 12:55 | Outpatient (REF) | payer MEDICARE, SELFPAY ==
--- OUTSIDE RECORDS SUMMARY | 2024-08-26 13:41 | XMS_ITS | Data Portability ---
Author Organization [place] - [facility] [place], [facility]IENT Address [address] [place] [address] Assessment Encounter Date Assessment Date Assessment LastModified [...] with this appointment. This visit is a jann-bn-nphp visit during the COVID-19 pandemic. Based on [...] all services provided today in accordance with [facility] and CDC Guidelines. [email or web address] Not available 08/06/2019 [...] Organization Details Recorded Time 05/21/1973 Other completed [facility] [place] 08/01/2019 14:45:08 Imaging Results None recorded. Procedure [...] Updated DateTime 08/01/2019 182.88 cm 25 kg/m2 00864 g [facility] [place] 08/01/2019 14:44:50 Social History Question Answer Notes LastModified by [employer] Details LastModified Time Tobacco Smoking Status Never Smoker [facility] [place] 08/01/2019 14:45:04 Auto Related Injury? No Information not available 08/01/2019 What Is Your Level Of Caffeine Consumption? Moderate Information not available 08/01/2019 What Types Of Sporting Activities Do You Participate In? Fly Fishing Information not available 08/01/2019 Work Related Injury? No Information not available 08/01/2019 Sex: Unknown Functional Status Question Answer Note LastModified by [employer] Details LastModified Time What is your level [...] available 07/31 14:45:40 Medical History Condition Response Blood Clots / Phlebitis N Heart Problems N HIV or AIDS N Depression or Anxiety N High Blood Pressure N Irregular Heartbeat N MRSA N Emphysema / Chronic Bronchitis N Any Other Significant Medical Issues N Reaction to General/Local Anesthesia N Weight Gain / Loss N Hepatitis / Jaundice N Kidney / Bladder Infections N Diabetes N Bleeding Disorder N Hearing Loss N Angina, Heart Failure or Attack N Night Sweats N Seizures / Epilepsy N Osteoarthritis / Rheumatoid arthritis / Other N Cancer N Stroke N Chemical Dependency / Alcoholism N Ulcer / Stomach Bleeding / Indigestion N Visual Loss or Glaucoma N Psoriasis / Skin Rash N Thyroid Disorder N Heart Disease N Asthma / Shortness of Breath / Sleep It Intern ea (please specify) N Pulmonary Embolism N Past Encounters Encounter ID Performer Location Encounter Start Date Encounter Closed Date Diagnosis/Indication Diagnosis SNOMED-CT Code Diagnosis ICD10 Code Diagnosis Note [id number] CHAMP HERNANDEZ MD [address] [phone] 08/01/2019 14:23:54 08/01/2019 15:12:31 Pain in right thumb [id number] M79.644 Health Concerns Section Related Observation LastModified by Organization Detai ls LastModified Time None Recorded Concern Status LastModified by Organization Details LastModified Time None Recorded Advance Directives Directive None Recorded Payers Insurance Date Sequence Insurance Name Policy Number Policy Ruffin Covered Member ID Ruffin Member ID Guarantor Name 07/29/2019 1 RONNY: [facility] [place] [place] [id number] Dalton Urena [id number] Dalton Urena Notes Date Note Type Note Provider Name [...] recorded in the chart. CHAMP HERNANDEZ MD [address] [place] [address], [phone] [place] 08/07/2019 08:38:15
--- OUTSIDE RECORDS SUMMARY | 2024-08-26 13:41 | XMS_ITS | Clinical Summary ---
Author Organization [facility] [place] [address] Care Team Providers Care Resident Assistant Cna Name Role Phone Unavailable Primary Care Provider Unavailabl e Social History Tobacco Use Types Packs/Day Years Used Date Smoking Tobacco: Never Assessed Sex and Gender Information Value Date Recorded Sex Assigned at Not on file Legal Sex Male 9:20 AM EST Gender Identity Not on file Sexual Orientation Not on file Plan of Treatment Health Maintenance Due Date Last Done Comments CT Colonography 1956 Colonoscopy 1956 Colorectal Cancer Screening 1956 FIT DNA 1956 FIT 1956 Sigmoidoscopy (10 year) with FIT yearly 1956 Sigmoidoscopy 1956 Hepatitis C Screening 1974 Lipid Screening 1974 Tetanus/Diphtheria/Pertussis Vaccines (1 - Tdap) 12/11 Pneumoccocal Vaccine: 50+ (1 of 1 - PCV) 2006 Zoster vaccine (1 of 2) 2006 Advance Directive 12/12/2011 Covid-19 Vaccine (1 - 2023- season) 2023 Influenza (Flu) vaccine (1 o f 1 - Influenza standard series) 10/07/2024
--- OUTSIDE RECORDS SUMMARY | 2024-08-26 13:41 | XMS_ITS | Clinical Summary ---
Author Organization [address] Address [address] [place] [address] Phone Care Team Providers Care Space Controller Name Role Phone Ervin Herzog MD Primary Care Provider [phone] Surgical History Surgery Date Site/Laterality Comments APPENDECTOMY 1974 PROCEDURE:APPENDECTOMY COLONOSCOPY 11/2001 PROCEDURE:COLONOSCOPY Medical History Medical History Date Comments Hemochromatosis DX:Hemochromatos is Glaucoma DX:Glaucoma Social History Tobacco Use Types Packs/Day Years Used Date Smoking Tobacco: Never Smokeless Tobacco: Never Alcohol Use Standard Drinks/Week Comments Yes 0 (1 standard drink = 0.6 oz pur e alcohol) Sex and Gender Information Value Date Recorded Sex Assigned at Not on file Legal Sex Male 12:43 PM EDT Gender Identity Not on file Sexual Orientation Not on file Obstetrics History Plan of Treatment Health Maintenance Due Date Last Done Comments DTaP,Tdap,and Td Vaccines (1 - Tdap) 12/12/1975 Pneumococcal Vaccine: 50+ Ye ars (1 of 1 - PCV) 2006 Zoster Vaccines (1 of 2) 2006 COVID-19 Vaccine ( - 2023-2 5 season) 2023 Depression Screening 02/07/2024 Abdominal Aortic Aneurysm (A AA) Screen 06/26/2024 Cholesterol Screening (Lipid Panel) 06/26/2024 Colorectal Cancer Screening: Colonoscopy 06/26/2024 Falls Risk Assessment 06/26/2024 Hepatitis C Screening 06/26/2024 Medicare Annual Wellness Visit 06/26/2024 Social Influencers of Health Screening 06/26/2024 Influenza Vaccine (#1) 2024 RSV Immunization Adult Patie nts (1 - 1-dose 75+ series) 12/12/2031 HIB Vaccines Aged Out No longer eligi ble based on patient's age to complete this topic HPV Vaccines Aged Out No longer eligi ble based on patient's age to complete this topic Hepatitis A Vaccines Aged Out No long er eligible based on patient's age to complete this topic Hepatitis B Vaccines Aged Out No long er eligible based on patient's age to complete this topic IPV Vaccines Aged Out No longer eligi ble based on patient's age to complete this topic MMR Vaccines Aged Out No longer eligi ble based on patient's age to complete this topic Meningococcal ACWY Vaccine Aged Out N o longer eligible based on patient's age to complete this topic Meningococcal B Vaccine Aged Out No l onger eligible based on patient's age to complete this topic RSV Immunization Patients Un madan 20 months Aged Out No longer eligible b ased on patient's age to complete this topic Varicella Vaccines Aged Out No longer eligible based on patient's age to complete this topic Insurance MEDICARE [facility] MEDICARE [facility] Care Teams Space Controller Relationship Specialty Start Date End Date Ervin Herzog MD [address] [place] [address] PCP - General Internal Medicine 03/26/19
--- OUTSIDE RECORDS SUMMARY | 2024-08-26 13:41 | XMS_ITS | Clinical Summary ---
Author Organization [address] Address [address] [place] [phone] Phone Care Team Providers Care Cork Grinder Name Role Phone Unavailable Primary Care Provider [...]
--- OUTSIDE RECORDS SUMMARY | 2024-08-26 13:41 | XMS_ITS | Clinical Summary ---
Author Organization [facility] Address [address] [place] [address] Care Team Providers Care Landscape Maintenance Internship Name Role Phone Ervin Herzog MD Primary Care Provider [phone] Allergies Active Allergy Reactions Criticality Noted Date [...] 83 04/08/2019 2:31 PM EST Temperature 36.6 C (97.8 F) 04/08/2019 2:31 PM EST Respiratory Rate - - Oxygen Saturation - [...] 1 - PCV) 2021 Influenza Vaccine (#1) 2024 RSV Adult > 60+ Yrs or Pregn ant (1 - 1-dose 75+ series) 12/12/2031 Hepatitis B Vaccines Aged Out No long er eligible based on patient's age to complete this topic RSV Ped < 20 months Aged Out No longe r eligible based on patient's age to complete this topic Care Teams Landscape Maintenance Internship Relationship Specialty Start Date End Date Ervin Herzog MD [address] [place] [address] PCP - General Internal Medicine 03/26/19
== END 2024-08-26 12:56 | disposition home or self-care (01) ==
LOC: HO.BBR 12:55
PROVIDERS: Visit Provider Internal Medicine Medical Oncology
DX: Z13.89 Encounter for screening for other disorder (principal)

== ENCOUNTER 2024-10-28 08:40 | Outpatient (REF) | payer MEDICARE, SELFPAY ==
--- OUTSIDE RECORDS SUMMARY | 2024-10-28 10:02 | XMS_ITS | Clinical Summary ---
Author Organization [address] Address [address] [place] [phone] Phone Care Team Providers Care Breakfast Manager Name Role Phone Unavailable Primary Care Provider [...] Shingrix (RZV) 2 Dose Standard Series) 2006 Influenza vaccine 09/06/2024 Covid-19 vaccine series ( - season) 2024 RSV Immunization (1 - 1-dose 75+ series) 12/12/2031 Meningococcal B Vaccine Aged Out No l onger eligible based on patient's age to complete this topic Meningococcal Vaccine Aged Out No gabriel juli eligible based on patient's age to complete this topic
--- OUTSIDE RECORDS SUMMARY | 2024-10-28 10:02 | XMS_ITS | Clinical Summary ---
Author Organization [address] Address [address] [place] [address] Phone Care Team Providers Care Slitting Machine Operator Name Role Phone Ervin Herzog MD Primary Care Provider [phone] Surgical History Surgery Date Site/Laterality Comments APPENDECTOMY [...] 2006 Zoster Vaccines (1 of 2) 2006 Depression Screening 02/07/2024 Abdominal Aortic Aneurysm (A AA) Screen 06/26/2024 Cholesterol Screening (Lipid Panel) 06/26/2024 Colorectal Cancer Screening: Colonoscopy 06/26/2024 Falls Risk Assessment 06/26/2024 Hepatitis C Screening 06/26/2024 Medicare Annual Wellness Visit 06/26/2024 Social Influencers of Health Screening 06/26/2024 COVID-19 Vaccine (1 - 2023-2 5 season) 2024 Influenza Vaccine (#1) 2024 RSV Immunization Adult [...] age to complete this topic Insurance MEDICARE [facility] MEDICARE [facility] Care Teams Slitting Machine Operator Relationship Specialty Start Date End Date Ervin Herzog MD [address] [place] [address] PCP - General Internal Medicine 03/26/19
--- OUTSIDE RECORDS SUMMARY | 2024-10-28 10:02 | XMS_ITS | Clinical Summary ---
Author Organization [facility] Address [address] [place] [address] Care Team Providers Care Insurance Premium Auditor Name Role Phone Ervin Herzog MD Primary Care Provider [phone] Allergies Active Allergy Reactions Criticality Noted Date [...] age to complete this topic Care Teams Insurance Premium Auditor Relationship Specialty Start Date End Date Ervin Herzog MD [address] [place] [address] PCP - General Internal Medicine 03/26/19
--- OUTSIDE RECORDS SUMMARY | 2024-10-28 10:02 | XMS_ITS | Encounter Summary ---
Author Organization [facility] Address [address] [place] [address] Care Team Providers Care Site Safety Manager Name Role Phone Ervin Herzog MD Primary Care Provider [phone] Encounter Details Date Type Department Care Team (Late st Contact Info) Description 02/14/2024 Lab Requisition [facility] - Main Lab [address] [facility] [place] [id number] Kirsty Dejesus PA [address] [facility] [address] [place] [address] Benign essential microscopic hematuria Social History Tobacco Use Types Packs/Day Years Used Date Smoking Tobacco: Never Assessed Sex and Gender Information Value Date Recorded Sex Assigned at Not on file Legal Sex Male 12:43 PM EDT Gender Identity Not on file Sexual Orientation Not on file documented as of this encounter Plan of Treatment Not on file documented as of this encounter Procedures Procedure Name Priority Date/Time Associated Diagnosis Comments AP OUTSIDE CONSULT Routine 02/01/2024 12 :00 AM EST Benign essential microscopic hematuria documented in this encounter Results * Anatomic pathology outside consult (02/01/2024 12:00 AM EST) Addendum Results of UroVysion fluorescence in situ hybridization (FISH) testing: CEP3: Normal CEP7: Normal CEP17: Normal LSI 9p21: Normal Interpretation: Normal profile Controls stained appropriately. Note: The results are intended as a screening device and should be interpreted in association with other clinical and pathological findings. 02/20/2024 3:23 PM EST [facility] Addendum electronically signed by Evonne Hill MD on 02/20/2024 at 3:23 PM Final Diagnosis A. Urine, voided, ([id number]): Negative for high grade urothelial carcinoma. Note: UroVysion testing to follow. 02/20/2024 3:[address] [facility] Clinical Information Benign essential microscopic hematuria R31.1 Urine Cytology/FISH (now) 02/20/2024 3:23 PM [facility] Gross Description A. Urine, Voided, ([id number]): Received is one ThinPrep slide for cytology screen and one ThinPrep slide for UroVysion FISH 02/20/2024 3:23 PM [facility] Disclaimer Unless otherwise specified, all tissue is 10% NB formalin fixed and paraffin embedded. Technical pathology services provided by [facility] at [address] [place] [address] [address], [place] [address] (CLIA #[id number]/Raya Zamarripa MD, Solar Installation Manager) 02/20/2024 3:23 PM [facility] Tissue Urine specimen from urethra / Unknown 02/01/2024 02/14/2024 1:25 PM EST us Kirsty [facility] PATHOLOGY ORDERABLES Edite d Result - Final [facility] [address] [place] [address], documented in this encounter Visit Diagnoses Diagnosis Benign essential microscopic hematuria documented in this encounter Care Teams Site Safety Manager Relationship Specialty Start Date End Date Ervin Herzog MD [address] [place] [address] PCP - General Internal Medicine 03/26/19 documented as of this encounter
== END 2024-10-28 08:41 | disposition home or self-care (01) ==
LOC: HO.BBR 08:40
PROVIDERS: Visit Provider Internal Medicine Medical Oncology
DX: Z13.89 Encounter for screening for other disorder (principal)

== ENCOUNTER 2024-12-27 09:49 | Outpatient (REF) | payer MEDICARE, SELFPAY ==
--- OUTSIDE RECORDS SUMMARY | 2024-12-27 10:31 | XMS_ITS | Clinical Summary ---
Author Organization [facility] Address [address] [place] [address] Care Team Providers Care Maintenance Person Name Role Phone Ervin Herzog MD Primary Care Provider Allergies Active Allergy Reactions Criticality Noted Date [...] age to complete this topic Care Teams Maintenance Person Relationship Specialty Start Date End Date Ervin Herzog MD [address] [place] [address] PCP - General Internal Medicine 03/26/19
--- OUTSIDE RECORDS SUMMARY | 2024-12-27 10:31 | XMS_ITS | Clinical Summary ---
Author Organization [address] Address [address] [place] [phone] Phone Care Team Providers Care High School Sports Coach Name Role Phone Unavailable Primary Care Provider [...] 2006 Influenza vaccine 09/06/2024 Covid-19 vaccine series (1 - 2024- season) 2024 RSV Immunization (1 - 1-dose 75+ series) 12/12/2031 Meningococcal B Vaccine Aged Out No l onger eligible based on patient's age to complete this topic Meningococcal Vaccine Aged Out No gabriel juli eligible based on patient's age to complete this topic
--- OUTSIDE RECORDS SUMMARY | 2024-12-27 10:31 | XMS_ITS | Encounter Summary ---
Author Organization [facility] Address [address] [place] [address] Care Team Providers Care Senior Audit Manager Name Role Phone Ervin Herzog MD Primary Care Provider [phone] Encounter Details Date Type Department Care Team (Late st Contact Info) Description 02/14/2024 Lab Requisition [facility] - Main Lab [address] [facility] [place] [phone] Kirsty Dejesus PA [address] [facility] [address] [place] [address] Benign essential microscopic hematuria Social History Tobacco [...] and pathological findings. 02/20/2024 3:23 PM EST [facility] Addendum electronically signed by Evonne Hill MD on 02/20/2024 at 3:23 PM Final Diagnosis A. Urine, voided, ([id number]): Negative for high grade urothelial carcinoma. Note: UroVysion testing to follow. 02/20/2024 3:23 PM EST [facility] Clinical Information Benign essential microscopic hematuria R31.1 Urine Cytology/FISH (now) 02/20/2024 3:23 PM [facility] Gross Description A. Urine, Voided, ([id number]): Received is one ThinPrep slide for cytology screen and one ThinPrep slide for UroVysion FISH 02/20/2024 3:23 PM [facility] Disclaimer Unless otherwise specified, all tissue is 10% NB formalin fixed and paraffin embedded. Technical pathology services provided by [facility] at [address] [place] [address] [address], [place] [address] (CLIA #[id number]/Raya Zamarripa MD, Wellness Nurse) 02/20/2024 3:23 PM [facility] Tissue Urine specimen from urethra / Unknown 02/01/2024 02/14/2024 1:25 PM EST us Kirsty [facility] PATHOLOGY ORDERABLES Edite d Result - Final [facility] [address] [place] [address], documented in this encounter Visit Diagnoses Diagnosis Benign essential microscopic hematuria documented in this encounter Care Teams Senior Audit Manager Relationship Specialty Start Date End Date Ervin Herzog MD [address] [place] [address] PCP - General Internal Medicine 03/26/19 documented as of this encounter
--- OUTSIDE RECORDS SUMMARY | 2024-12-27 10:31 | XMS_ITS | Clinical Summary ---
Author Organization [address] Address [address] [place] [address] Phone Care Team Providers Care Supervisor [employer] Name Role Phone Ervin Herzog MD Primary Care Provider Surgical History Surgery Date Site/Laterality Comments APPENDECTOMY [...] Health Maintenance Due Date Last Done Comments Colorectal Cancer Screening: Colonoscopy 1955 DTaP,Tdap,and Td Vaccines (1 - Tdap) 12/12/1975 Pneumococcal Vaccine: 50+ Ye ars (1 of 1 - PCV) 2006 Zoster Vaccines (1 of 2) 2006 Depression Screening 02/07/2024 Abdominal Aortic Aneurysm (A AA) Screen 06/26/2024 Cholesterol Screening (Lipid Panel) 06/26/2024 Falls Risk Assessment 06/26/2024 Hepatitis C Screening 06/26/2024 Medicare Annual Wellness Visit 06/26/2024 Social Influencers of Health Screening 06/26/2024 COVID-19 Vaccine (1 - 2024-2 6 season) 2024 Influenza Vaccine (#1) 2024 RSV [...] age to complete this topic Insurance MEDICARE [facility] MEDICARE [facility] Care Teams Supervisor [employer] Relationship Specialty Start Date End Date Ervin Herzog MD [address] [place] [address] PCP - General Internal Medicine 03/26/19
== END 2024-12-27 09:50 | disposition home or self-care (01) ==
LOC: HO.BBR 09:49
PROVIDERS: Visit Provider Internal Medicine Medical Oncology
DX: Z13.89 Encounter for screening for other disorder (principal)